=== PATIENT | male | born 1980 | race Caucasian/White ===

== ENCOUNTER 2016-10-02 18:39 | Emergency (ER) | payer SELFPAY ==
[~2016-10-02] VITALS: Ht 177.8 cm; Wt 72.7 kg
[2016-10-02 18:39] VITALS: TEMP 96.5
[2016-10-02 19:25] VITALS: BP 139/87; PULSE 63
== END 2016-10-02 19:42 | disposition short-term general hospital (02) ==
LOC: COL.ER 18:39 → EDBD 18:41 → COL.ER 19:42
DX: S01.83XA Puncture wound without foreign body of other part of head, initial encounter (principal); S31.144A Puncture wound of abdominal wall with foreign body, left lower quadrant without penetration into peritoneal cavity, initial encounter; S51.832A Puncture wound without foreign body of left forearm, initial encounter; W34.00XA Accidental discharge from unspecified firearms or gun, initial encounter; Y92.59 Other trade areas as the place of occurrence of the external cause; Z23 Encounter for immunization; R40.2412 Glasgow coma scale score 13-15, at arrival to emergency department
CPT/HCPCS: J0690; J2270; J2405; J7030

== ENCOUNTER 2016-10-08 19:26 | Emergency (ER) | payer SELFPAY ==
[~2016-10-08] VITALS: Ht 177.8 cm; Wt 75.0 kg
[2016-10-08 19:31] VITALS: BP 132/83; TEMP 97.7
[2016-10-08] MEDS ORDERED: NORCO 325 MG-51 TAB PO ×2 (19:34→20:32)
[2016-10-08] MEDS ORDERED: AMOXICILLIN 50500 MG PO (19:35)
[2016-10-08 21:01] VITALS: PULSE 79
== END 2016-10-08 21:10 | disposition home or self-care (01) ==
LOC: COL.ER 19:26
DX: T84.84XA Pain due to internal orthopedic prosthetic devices, implants and grafts, initial encounter (principal); F17.210 Nicotine dependence, cigarettes, uncomplicated